=== PATIENT | female | born 1980 | race Caucasian/White ===

== ENCOUNTER 2018-04-18 22:27 | Emergency (ER) | payer SELFPAY ==
[2018-04-18 22:34] VITALS: PULSE 82; RESP 20; TEMP 98.3
[2018-04-18] MEDS ORDERED: Bacitracin 500 Units/gm Oint Foilpak UD TOP ONE (22:48)
[2018-04-18] MEDS ORDERED: Tdap Vaccine 0.5 ml Vial (10-64 yrs) IM ONE ×2 (22:48→22:54)
[2018-04-18] MEDS ORDERED: Bacitracin 500 Units/gm Oint Foilpak UD ONE (22:53)
--- NOTE | 2018-04-18 23:08 | C.PDOC ---
History Of Present Illness 37 year old female presents to the ED c/o right calf pain that has been getting progressively worse today. Patient states she accidentally stepped on a hole which occurred 5 hours ago. Patient does not know when her last tetanus vaccine was, patient did not take any pain medication. Patient denies head injury, LOC, weakness, numbness, other trauma, injury. Time Seen by Provider: 04/18/18 22:35 Chief Complaint (Nursing): Lower Extremity Problem/Injury History Per: Patient History/Exam Limitations: clinical condition Onset/Duration Of Symptoms: Hrs (5) Current Symptoms Are (Timing): Still Present Recent travel outside of the [place]: No Additional History Per: Patient - Ankle/Foot Description Of Injury: Fell Past Medical History Reviewed: Historical Data, Nursing Documentation, Vital Signs Vital Signs: Last Vital Signs Temp 98.3 F 04/18/18 23:37 Pulse 82 04/18/18 23:37 Resp 20 04/18/18 23:37 BP 118/80 04/18/18 23:37 Pulse Ox 98 04/20/18 02:29 - Medical History PMH: No Chronic Diseases Surgical History: No Surg Hx Family History: States: Unknown Family Hx - Social History Hx Tobacco Use: No Hx Alcohol Use: No Hx Substance Use: No Review Of Systems Constitutional: Negative for: Fever, Chills Cardiovascular: Negative for: Chest Pain Respiratory: Negative for: Shortness of Breath Gastrointestinal: Negative for: Nausea, Vomiting Musculoskeletal: Positive for: Leg Pain Skin: Positive for: Bruising. Negative for: Rash Neurological: Negative for: Weakness, Numbness, Headache, Dizziness Physical Exam - Physical Exam Appears: Non-toxic, No Acute Distress Skin: Normal Color, Warm, Dry Head: Atraumatic, Normacephalic Eye(s): bilateral: Normal Inspection Back: Normal Inspection, No Vertebral Tenderness Extremity: Normal ROM (right knee and ankle), Tenderness (right knee, medial aspect), Capillary Refill (< 2 seconds), Swelling (mild to medial aspect distal right thigh soft tissue), Other (medial aspect of right calf multiple abrasions , 10-12 cm length) Pulses: Left Dorsalis Pedis: Normal, Right Dorsalis Pedis: Normal Neurological/Psych: Oriented x3, Normal Speech, Normal Cognition, Normal Motor, Normal Sensation Gait: Steady ED Course And Treatment O2 Sat by Pulse Oximetry: 98 (ON RA) Pulse Ox Interpretation: Normal Medical Decision Making Medical Decision Making: Plan: * Wound care * Tylenol * Tetanus immunization Disposition Counseled Patient/Family Regarding: Diagnosis, Need For Followup - Disposition Referrals: [facility] [Outside] [facility] [Outside] Disposition: HOME/ ROUTINE Disposition Time: 23:29 Condition: GOOD Additional Instructions: [place] Tylenol o Advil para el dolor cada 6 horas si es necesario. Aplique compresas fras en las piernas (sobre andrew toalla delgada) 3-4 veces al da kennedy 20 minutos. Mantenga las abrasiones limpias; aplicar la pomada de bacitracin 2 veces al da. Prosiga en la clnica mdica la prxima semana. Vuelva a la mary de emergencias por andrew hinchazn o dolor peor, dificultad para caminar o cualquier signo de infeccin kelley peor enrojecimiento, calor o fiebre. Take Tylenol or Advil for pain every 6 hours if needed. Apply cold compress to leg (over a thin towel) 3-4 times a day for 20 minutes. Keep abrasions clean; apply bacitracin ointment 2 times a day. Follo up in medical clinic next week. Return to ER for worse swelling or pain, difficulty walking, or any sign of infection such as worse redness, warmth or fever. Instructions: Contusion (DC), Skin Abrasions (DC) Forms: Gen Discharge Inst French, [facility] (French) Print Language: [place] - Clinical Impression Clinical Impression: Accidental fall into hole or opening in surface, Abrasion, right lower leg, initial encounter, Contusion - PA / SMASH PIECER / Resident Statement MD/DO has reviewed & agrees with the documentation as recorded. - Scribe Statement The provider has reviewed the documentation as recorded by the Scribe German Berkowitz All medical record entries made by the Scribe were at my direction and personally dictated by me. I have reviewed the chart and agree that the record accurately reflects my personal performance of the history, physical exam, medical decision making, and the department course for this patient. I have also personally directed, reviewed, and agree with the discharge instructions and disposition.
[2018-04-18 23:38] VITALS: BP 118/80
[2018-04-20 02:29] VITALS: O2SAT 98
== END 2018-04-18 23:38 | disposition home or self-care (01) ==
LOC: C.ER 22:27
DX: S80.811A Abrasion, right lower leg, initial encounter (principal); S80.11XA Contusion of right lower leg, initial encounter; W17.2XXA Fall into hole, initial encounter; Z23 Encounter for immunization